=== PATIENT | female | born 1985 | race African-American/Black ===

== ENCOUNTER 2021-12-10 20:13 | Emergency (ER) | payer MEDICAID ==
[~2021-12-10] VITALS: Ht 175.3 cm; Wt 140.0 kg
[~2021-12-10 20:13] MED LIST: BENZ1TAB7 PO
[2021-12-10 20:15] VITALS: BP 156/92
[2021-12-10] MEDS ORDERED: LORAZEPAM 1MG TABLET PO ONE (21:30)
[2021-12-10] MEDS ORDERED: HALOPERIDOL 5MG TABLET PO ONE (21:30)
[2021-12-10 22:01] LABS: BASOPHILS % 0.3 % (0.0-2.0); EOSINOPHILS % 0.7 % (0.0-5.0); HEMOGLOBIN. 12.4 g/dL (12.0-16.0); LYMPHOCYTES % 35.9 % (20.0-50.0); MEAN CORPUSCULAR VOLUME 85.9 fL (81.0-99.0); MEAN PLATELET VOLUME 10.6 fl (7.4-10.4); MONOCYTES % 9.4 % (2.0-8.0); NEUTROPHILS % 53.7 % (40.0-76.0); PLATELET 126 x1000/uL (130-400); RED BLOOD CELL COUNT 4.42 mill/uL (4.2-5.4)
[2021-12-10 22:05] LABS: CHLORIDE 109 mEq/L (98-107)
[2021-12-10 22:06] LABS: HCG SCREEN NEGATIVE
[2021-12-10 22:21] LABS: ETHANOL BLOOD < 10 mg/dL
== END 2021-12-10 22:24 | disposition left against medical advice (07) ==
LOC: ER 20:13
DX: F23 Brief psychotic disorder (principal); F31.9 Bipolar disorder, unspecified; F41.9 Anxiety disorder, unspecified; Z20.822 Contact with and (suspected) exposure to COVID-19
CPT/HCPCS: 36415; 80053; 80307; 80320; 80329; 84703; 85025; 99283; G0480

== ENCOUNTER 2022-09-13 08:57 | Emergency (ER) | payer MEDICAID ==
[~2022-09-13] VITALS: Ht 170.2 cm; Wt 126.0 kg
[2022-09-13 10:31] LABS: CLARITY URINE CLEAR (CLEAR); COLOR URINE YELLOW (YELLOW); KETONES URINE TRACE (NEGATIVE); LEUKOCYTE ESTERASE URINE TRACE (NEGATIVE); NITRITE URINE NEGATIVE (NEGATIVE); OCCULT BLOOD URINE 3+ (NEGATIVE); PROTEIN URINE TRACE (NEGATIVE); SPECIFIC GRAVITY URINE 1.028 (1.005-1.030)
[2022-09-13 10:49] LABS: *AMPHETAMINES SCREEN URINE NEGATIVE (NEGATIVE); *BARBITURATES SCREEN URINE NEGATIVE (NEGATIVE); *BENZODIAZEPINES SCREEN URINE NEGATIVE (NEGATIVE); *COCAINE SCREEN URINE NEGATIVE (NEGATIVE); METHADONE URINE SCREEN NEGATIVE (NEGATIVE); OPIATES URINE SCREEN NEGATIVE (NEGATIVE); PHENCYCLIDINE URINE SCREEN NEGATIVE (NEGATIVE)
[2022-09-13 10:50] LABS: CANNABINOID URINE SCREEN PRESUMTIVE POSITIVE (NEGATIVE)
[2022-09-13 11:43] LABS: BASOPHILS % 0.7 % (0.0-2.0); EOSINOPHILS % 0.6 % (0.0-5.0); HEMATOCRIT. 41.2 % (36.0-48.0); LYMPHOCYTES % 36.3 % (20.0-50.0); MEAN CORPUSCULAR HEMOGLOBIN 27.2 pg (28.0-32.0); MEAN CORPUSCULAR VOLUME 85.9 fL (81.0-99.0); MONOCYTES % 9.5 % (2.0-8.0); NEUTROPHILS % 52.9 % (40.0-76.0); PLATELET 171 x1000/uL (130-400); RED BLOOD CELL COUNT 4.79 mill/uL (4.2-5.4); RED CELL DISTRIBUTION WIDTH 16.5 % (11.6-14.6)
[2022-09-13 12:08] LABS: CHLORIDE 103 mEq/L (98-107)
[2022-09-13 12:20] LABS: B-HCG QUANTITATIVE < 1 mIU/mL (<3); ETHANOL BLOOD < 10 mg/dL
[2022-09-13 16:00] VITALS: BP 114/67
== END 2022-09-13 16:00 | disposition home or self-care (01) ==
LOC: ER 08:57
DX: R45.851 Suicidal ideations (principal); F20.9 Schizophrenia, unspecified; F41.9 Anxiety disorder, unspecified; J45.909 Unspecified asthma, uncomplicated; F31.9 Bipolar disorder, unspecified; F12.10 Cannabis abuse, uncomplicated
CPT/HCPCS: 36415; 80053; 80305; 80307; 80320; 80329; 81003; 84702; 85025; 99283; G0480